=== PATIENT | female | born 1985 | race Caucasian/White ===

== ENCOUNTER 2018-09-10 09:50 | Outpatient (CLI) | payer OTHER, SELFPAY ==
[2018-09-10 10:39] VITALS: BMI 25.5
[2018-09-10 10:51] LABS: ROM Internal Control Test YES-OK TO RESULT pt. (Internal QC); ROM Patient Test Negative (Negative)
--- NOTE | 2018-09-15 18:18 | OB.TRI.NOTE ---
History of Present Illness Date of Service: 09/10/18 Was patient seen by the physician?: No Reason For Visit: R/O SROM Date of Service: 09/10/18 Final JIMBO: 09/11/18 Gestational age: 40 Weeks and 4 Days History of Present Illness: Presented to L&D for possible ROM and increased vaginal discharge. Mild contractions, infrequent. Allergies No Known Allergies Allergy (Verified 09/10/18 10:52) - Pertinent Past Medical History Medical History: Past Medical History (Last Updated 09/11/18 @ 08:22 by Patti Love DO) Collar bone fracture Laboratory Studies: Laboratory Tests 09/10/18 Range/Units 10:10 Vag Amniotic Fld Detect Negative (Negative) NST - FHR Rate Baby A Baseline: 135 Variability:: Moderate Accelerations:: 15 x 15 Decelerations:: None NST Reactive:: Yes Uterine Activity:: Irregular, mild. Lastin 40-120 seconds Impression/Plan A: 39w6d for false labor P: 1) D/C home 2) IOL in morning with Pitocin.
== END 2018-09-10 12:30 | disposition home or self-care (01) ==
LOC: WPOUT 10:16 → WP 10:17
PROVIDERS: Obstetrics & Gynecology; Family Provider Family Medicine; PCP Family Medicine; Referring Provider Advanced Practice Midwife; Visit Provider Advanced Practice Midwife
DX: O47.1 False labor at or after 37 completed weeks of gestation (principal); Z3A.39 39 weeks gestation of pregnancy
CPT/HCPCS: 59025; 59050; 84112; 99218; G0378

== ENCOUNTER 2018-09-11 06:55 | Inpatient (IN) | payer OTHER, SELFPAY ==
[2018-09-11] VITALS (8 sets, daily range): BP systolic 91–110; BP diastolic 53–70; PULSE 65–85; RESP 15–20; TEMP 36.6–36.7; O2SAT 97–98; BMI 25.5
[2018-09-11 07:51] LABS: Hematocrit 36.2 % (37-47); Hemoglobin 12.3 g/dl (12.0-15.0); Mean Corpuscular Hgb 31.8 pg (27.0-32.0); Mean Corpuscular Volume 93.5 fL (81-99); Mean Platelet Vol. 10.4 fl (6.2-12.0); Platelet Count 147 K/mm3 (150-450); RBC Distribution Width CV 12.6 % (11.6-14.6); RBC Distribution Width SD 42.1 fl (35.1-43.9); Red Blood Count 3.87 M/mm3 (4.2-5.4); White Blood Count 9.2 K/mm3 (4.4-11.0)
[2018-09-11 07:52] LABS: Scan Indicated on CBC? Y/N NO
[2018-09-11] MEDS: Oxytocin 30 units/NS 500 ml 30 UNITS/500 ML IV.SOLN IV (08:00)
[2018-09-11] MEDS: Lactated Ringers 1,000 ML 50 ML IV ×5 (08:03→19:52)
--- NOTE | 2018-09-11 08:19 | PCM.HP.OB ---
- Problem List (1) Multiparous Status: Acute (2) AMA (advanced maternal age) multigravida 35+ Status: Acute History Date of Admission: 09/11/18 Final JIMBO: 09/11/18 Final JIMBO Source: LMP Gestational age: 40 Weeks and 0 Days History of this : This is a 33 year-old, , at 40 weeks gestational age presenting for IOL for AMA. Cvx 5 cm dilated and a multip. No ctx, vb, lof. +FM. Medical History: Medical History (Last Updated 09/11/18 @ 08:22 by Patti Love DO) Collar bone fracture S42.009A Allergies No Known Allergies Allergy (Verified 09/10/18 10:52) Home Medications: Home Medications Vits [Prenatabs FA] 1 tablet PO DAILY 06/06/15 Smoking Status: Never smoker Number of Fetus(es): 1 Heart Tracing: Category 1 TOCO Analysis: No regular ctx's History Past Pregnancies: Past Pregnancies Delivery Date Name GA/Weeks Outcome Route Weight Infant Gender Labor Length Anesthesia Delivery Location Provider FOB term oligo 6lb 8w sab term 9lb term 8lb mab Labs: GBS neg, 1hr GTT 80, Rh pos, RI, syphilis NR, hep b neg, hiv nr, gc/ct neg Expected Delivery Method: Spontaneous Vaginal Review of Systems Constitutional: Denies: Fever Gynecological: Reports: - - No regular ctx, vb, lof. +FM Physical Exam General: Alert, Oriented x3 HEENT: Atraumatic Lungs: - - No increased resp effort Abdomen: Gravid Neurological: Neuro grossly intact [employer]: Normal external genitalia Estimated gestational size: Appropriate for gestational size Presentation: Cephalic Cervix Dilation (cm): 5 Station: -3 Effacement (%): 60 Assessment/Plan All Active Problems Multiparous (Acute) AMA (advanced maternal age) multigravida 35+ (Acute) This is a 33 year-old, , at 40 weeks gestational age who presents for IOL. Hx significant for AMA, multip, cervical dilation of 5cm. - Routine intrapartum care - GBS neg - Start pit - Epidural for pain control - Will AROM after epidural
[2018-09-11] MEDS: fentaNYL-bupivacaine (epidural) 100 ML BAG EPIDURAL ×2 (10:06→15:00)
--- NOTE | 2018-09-11 12:41 | PN_ITS ---
Progress Note At bedside to check on pt. S/p epidural and comfortable. Cvx 5/80/-1, more anterior. Leaking clear fluid no membranes felt. SROM for clear fluid around noon. Category 1 tracing. [place] with ctx's q 3-4 min. Continue pit. Continue current management. Will recheck in 2 hrs and if no cervical change place IUPC.
[2018-09-11] MEDS: Amnioinfusion- 0.9% NS 1,000 ML IV.SOLN. INTRA-UTER (17:00)
--- NOTE | 2018-09-11 17:44 | PCM.PN.BLA ---
Progress Note At bedside with patient over last 1 hour. Cvx 10/100/0 station, OP position. Patient pushed for about 30 min with minimal descent. Attempted to manually rotate the baby, but was still OP position. Started position changes, and had patient in left lateral and right lateral with leg draped over side of bed to hopefully assist with turning baby. Had patient push in left and right lateral. FHT 130/mod dank/no accels/+variables with pushing. FSE and IUPC placed. Amnioinfusion started. Cvx 10/100/0, OP position. Had been pushing for about 1 hour. Took a break from pushing, and placed patient and hands and knees.
--- NOTE | 2018-09-11 18:56 | PCM.PN.BLA ---
Progress Note Patient pushing for almost 2 hours. Continue with position changes. Maternal effort great with pushing. Cvx 10/100/+1 station. Still OP position. Patient has made some descent with pushing. FHT 135/mod dank/no accels/+variable decels with pushing. Will half pitocin and if variables continue, will stop pitocin. Discussed possible with patient.
[2018-09-11] MEDS: Sodium Citrate/Citric Acid 30 ML UDC PO (19:55)
--- NOTE | 2018-09-11 20:04 | PCM.PN.BLA ---
Progress Note At bedside to check on patient. Pit off. FHT 145/mod dank/no accels/+occasional variable decels. Cvx 10/100/+1, OP position. Patient tired from pushing over 2 hours. Given persistent OP position and intolerance to labor, recommended section. Discussed risks of a including bleeding with need for blood transfusion, infection and damage to surrounding organs.
[2018-09-11] MEDS: Cefazolin 2 GM in 0.9% Normal Saline 100 ML IV (20:31)
[2018-09-11] MEDS: Oxytocin 30 units/NS 500 ml 30 UNITS/500 ML IV.SOLN 167 UNITS IV (21:18)
[2018-09-11] MEDS: Lactated Ringers 1,000 ML 100 ML IV (22:10)
--- NOTE | 2018-09-11 22:18 | OP.PCM_ITS ---
- Problem List (1) Multiparous Status: Acute (2) AMA (advanced maternal age) multigravida 35+ Status: Acute Delivery Final JIMBO: 09/11/18 Gestational age: 40 Weeks and 0 Days Indications for : Failure of Descent, Nonreassuring Status, - - OP position Description of Procedure: Indications: The patient is a 33-year-old 003 who presented at 40 weeks gestation for induction of labor. significant for advanced maternal age. She is a multiparous patient and was 5 cm dilated at the start of the induction. She was started on Pitocin. She spontaneously ruptured. She progressed to complete. The fetus was noted to be in OP position. Several different position changes were attempted in order to rotate the fetus. Manual rotation was also attempted during pushing. The patient was pushing for over 2 hours, and with multiple different position changes as well as attempt at manual rotation, the fetus remained in OP position. Recurrent variable decelerations were noted, and the pitocin was stopped. After over 2 hours of pushing the station changed from 0 to +1, the patient became exhausted, more caput was developing, variable decelerations were becoming deeper, and no progress was made beyond +1 station. The decision was made to proceed with a section after discussion of risks, benefits, and alternatives with the patient. Procedure: The kerns was noted to be draining bright red bloody urine prior to the start of the procedure. The patient was taken to the operating room where epidural anesthesia was not found to be adequate. The patient was then sat up for a spinal anesthesia. The patient was then prepped and draped in the usual sterile fashion in dorsal supine position with a leftward tilt. Spinal anesthesia was found to be adequate. A Pfannenstiel skin incision was made with the scalpel and carried through to the underlying layer of fascia. The fascia was incised in the midline and extended laterally using Jose scissors. Reg clamps were used to elevate the superior aspect of the fascial incision, and the underlying rectus muscles were dissected off bluntly and using Jose scissors. A ttention was then turned to the inferior aspect of the fascial incision, which was grasped with Reg clamps; the underlying rectus muscles were dissected off bluntly and using Jose scissors. The rectus muscles were in the midline. The peritoneum was entered using Metzenbaum scissors. This incision was extended superiorly and inferiorly with good visualization of the bladder. The bladder blade was inserted. The lower uterine segment was incised in a transverse fashion using a scalpel and extended bluntly. Meconium-stained fluid was noted. The was noted to be in OP position. The infant was delivered without difficulty but with assistance from a hand below. The nose and mouth were bulb suctioned. The cord was clamped and cut. The was subsequently handed off to the waiting nursery nurse. The placenta was delivered with manual extraction. The uterus was exteriorized and cleared of all clot and debris. There was a small extension noted left laterally. The uterine incision was repaired using 0 Vicryl in a running locked fashion. Hemostasis was noted. Normal bilateral tubes and ovaries were noted. The uterus was then returned to the abdomen. The uterine incision was reexamined and again noted to be hemostatic. Adryan was placed over the bladder and the uterine incision. The peritoneum was reapproximated in the midline using 3-0 Vicryl. The fascia was closed with 0 Vicryl suture. Subcutaneous layer was irrigated and found to be hemostatic. The skin was closed in a subcuticular fashion with suture. Sponge, lap, instrument, and needle counts were correct x2. The patient was stable at the completion of the procedure and was taken to the recovery room in good condition. Amniotic Membrane Rupture Type: Spontaneous Amniotic Fluid Description: Moderate meconium, - - It was initially clear during labor, meconium at time of section Drain: Kerns to straight drain Cord Entanglement: None Esitmated Blood Loss (ml): 600 Infant Gender: Male Complications: None - Admit VTE Documentation VTE Mechan Device Prophylaxis: SCD's
--- NOTE | 2018-09-11 23:00 | NURSING ---
scratches on R side of abdomen from straps for labor belts
--- NOTE | 2018-09-11 23:10 | NURSING ---
persistant OP, intolerance , failure to descend
[2018-09-12] VITALS (16 sets, daily range): BP systolic 89–122; BP diastolic 51–75; PULSE 63–111; RESP 15–18; TEMP 36.6–37.4; O2SAT 95–100
[2018-09-12] MEDS: Ketorolac 30 MG/ML Syringe IV ×4 (02:37→21:14)
[2018-09-12] MEDS: Lactated Ringers 1,000 ML 100 ML IV (02:38)
[2018-09-12 06:29] LABS: Hematocrit 30.6 % (37-47); Hemoglobin 10.2 g/dl (12.0-15.0); Mean Corp Hgb Conc 33.3 g/gl (32-36); Mean Corpuscular Hgb 31.8 pg (27.0-32.0); Mean Corpuscular Volume 95.3 fL (81-99); Mean Platelet Vol. 10.2 fl (6.2-12.0); Platelet Count 122 K/mm3 (150-450); RBC Distribution Width CV 12.6 % (11.6-14.6); RBC Distribution Width SD 42.1 fl (35.1-43.9); Red Blood Count 3.21 M/mm3 (4.2-5.4); White Blood Count 8.5 K/mm3 (4.4-11.0)
[2018-09-12 06:31] LABS: Scan Indicated on CBC? Y/N NO
--- NOTE | 2018-09-12 07:21 | PCM.PN.OB ---
Patient Problems: Active and Suspected Problems (Last Updated 09/11/18 @ 08:22 by Patti Love DO) Multiparous (Acute) AMA (advanced maternal age) multigravida 35+ (Acute) Subjective: Patient doing well. Pain controlled. Kerns in place. Had small amounts to eat last night without nausea or vomiting. Is breast-feeding. Denies fevers, chest pain, shortness of breath, leg pain. Has not ambulated. - Physical Exam General: Alert, Oriented x3 HEENT: Atraumatic Lungs: - - No increased resp effort Abdomen: Soft, Non Tender, - - FF@U-1 Extremities: No Calf Tenderness Skin: No rashes Neurological: Neuro grossly intact Psych/Mental Status: Normal Affect, Appropriate Vital Signs Temp Pulse Resp BP Pulse Ox 97.9 F 70 17 89/51 L 95 09/12/18 04:00 09/12/18 05:57 09/12/18 05:57 09/12/18 04:00 09/12/18 05:57 Oxygen Delivery Method Room Air Weight: 168 lb Body Mass Index (BMI) 25.5 Intake and Output for Last 24 Hours 09/10/18 09/11/18 09/12/18 23:59 23:59 23:59 Intake Total 3112 / 3112 200 / 200 Output Total 750 / 750 750 / 750 Balance 2362 / 2362 -550 / -550 Laboratory Tests Past 24 Hrs 09/11/18 09/11/18 09/11/18 07:30 07:30 09:20 WBC 9.2 RBC 3.87 L Hgb 12.3 Hct 36.2 L MCV 93.5 MCH 31.8 MCHC 34.0 RDW 12.6 RDW Differential 42.1 Plt Count 147 L MPV 10.4 Blood Type Cancelled B POSITIVE A1 Antigen Typing Cancelled Rho(D) Type Cancelled Antibody Screen Cancelled NEGATIVE 09/12/18 06:15 WBC 8.5 RBC 3.21 L Hgb 10.2 L Hct 30.6 L MCV 95.3 MCH 31.8 MCHC 33.3 RDW 12.6 RDW Differential 42.1 Plt Count 122 L MPV 10.2 Blood Type A1 Antigen Typing Rho(D) Type Antibody Screen Medical Necessity - Tobacco Use Smoking Status: Never smoker Assessment/Plan All Active Problems (Last Updated 09/11/18 @ 08:22 by Patti Love DO) Multiparous (Acute) AMA (advanced maternal age) multigravida 35+ (Acute) POD#1 s/p PLTCS for failure to descent, OP position, intolerance to labor. - Doing well - Start iron for acute blood loss anemia - Plt's decreased today, will repeat CBC in AM to trend - - D/c kerns today and encourage ambulation - Dispo: Routine PO care
[2018-09-12] MEDS: 0.9% Saline Lock 10 ML Syringe IV ×2 (16:28→21:15)
[2018-09-12] MEDS: Ferrous Sulfate 325 MG Tablet PO (16:29)
[2018-09-12] MEDS: Docusate Sodium 100 MG Capsule PO (21:15)
[2018-09-13 02:20] VITALS: BP 114/69; PULSE 97; RESP 16; TEMP 37.1; O2SAT 94
[2018-09-13] MEDS: Ketorolac 30 MG/ML Syringe IV ×3 (04:50→15:44)
[2018-09-13] MEDS: 0.9% Saline Lock 10 ML Syringe IV ×3 (04:51→15:44)
[2018-09-13] MEDS: Acetaminophen 500 MG Tablet 1000 MG PO ×2 (07:38→19:04)
[2018-09-13] MEDS: Docusate Sodium 100 MG Capsule PO ×2 (07:39→22:08)
--- NOTE | 2018-09-13 07:45 | PCM.PN.OB ---
Patient Problems: Active and Suspected Problems (Last Updated 09/11/18 @ 08:22 by Patti Love DO) Multiparous (Acute) AMA (advanced maternal age) multigravida 35+ (Acute) Subjective: No complaints - Physical Exam General: Alert, Oriented x3 Abdomen: Soft, Non Tender, Non-Distended - ff mid & below umb; inc - bandage c/d/i Extremities: No edema, No Calf Tenderness Vital Signs Temp Pulse Resp BP Pulse Ox 98.8 F 97 16 114/69 94 09/13/18 02:20 09/13/18 02:20 09/13/18 02:20 09/13/18 02:20 09/13/18 02:20 Oxygen Delivery Method Room Air Weight: 168 lb Body Mass Index (BMI) 25.5 Intake and Output for Last 24 Hours 09/11/18 09/12/18 09/13/18 23:59 23:59 23:59 Intake Total 3112 / 3112 3507 / 3507 Output Total 750 / 750 4500 / 4500 400 / 400 Balance 2362 / 2362 -993 / -993 -400 / -400 Medical Necessity - Tobacco Use Smoking Status: Never smoker Assessment/Plan All Active Problems (Last Updated 09/11/18 @ 08:22 by Patti Love DO) Multiparous (Acute) AMA (advanced maternal age) multigravida 35+ (Acute) POD#2 Routine care
[2018-09-13 08:00] VITALS: BP 94/55; PULSE 72; RESP 16; TEMP 36.3
[2018-09-13] MEDS: Ferrous Sulfate 325 MG Tablet PO ×2 (10:53→15:52)
[2018-09-13 14:16] VITALS: BP 106/67; PULSE 67; RESP 16; TEMP 36.3
[2018-09-13 20:30] VITALS: BP 106/69; PULSE 77; RESP 16; TEMP 36.4; O2SAT 96
[2018-09-13] MEDS: Ibuprofen 600 MG Tablet PO (22:08)
[2018-09-14 01:15] VITALS: BP 105/62; PULSE 72; RESP 16; TEMP 36.3; O2SAT 100
[2018-09-14] MEDS: Acetaminophen 500 MG Tablet 1000 MG PO (06:26)
--- NOTE | 2018-09-14 07:13 | PCM.PN.OB ---
Patient Problems: Active and Suspected Problems (Last Updated 09/11/18 @ 08:22 by Patti Love DO) Multiparous (Acute) AMA (advanced maternal age) multigravida 35+ (Acute) Subjective: No complaints - Physical Exam General: Alert, Oriented x3 Abdomen: Soft, Non Tender, Non-Distended - ff mid & below umb; bandage - c/d/i Extremities: No Calf Tenderness Vital Signs Temp Pulse Resp BP Pulse Ox 97.4 F L 72 16 105/62 100 09/14/18 01:15 09/14/18 01:15 09/14/18 01:15 09/14/18 01:15 09/14/18 01:15 Oxygen Delivery Method Room Air Weight: 168 lb Body Mass Index (BMI) 25.5 Intake and Output for Last 24 Hours 09/12/18 09/13/18 09/14/18 23:59 23:59 23:59 Intake Total 3507 / 3507 Output Total 4500 / 4500 400 / 400 Balance -993 / -993 -400 / -400 Medical Necessity - Tobacco Use Smoking Status: Never smoker Assessment/Plan All Active Problems (Last Updated 09/11/18 @ 08:22 by Patti Love DO) Multiparous (Acute) AMA (advanced maternal age) multigravida 35+ (Acute) POD#3 D/c home per patient request
--- NOTE | 2018-09-14 07:17 | DCINST_ITS ---
Discharge Diet: No Restrictions Discharge Activity: May not drive while taking narcotic pain medications., May Shower May resume sexual activity in: 4-6 weeks Weight Bearing Status: Weight bearing as tolerated Call your doctor if your incision/area has: Continuous Slow Oozing, Sudden Increased Bleeding, Increased Pain/ Swelling, Increased Redness, Foul Smelling Discharge, Swelling at the incision site Additional Instructions: If you experience any of the following, contact your healthcare provider. * Bleeding that soaks a pad every hour for 2 hours * Fever 100.4 or higher * Unrelieved incision or abdominal pain * Swelling, redness, discharge or bleeding from your incision or episiotomy site * Your incision begins to separate * Problems urinating (including inability to urinate or burning while urinating). * Visual changes * Severe headache * Flu-like symptoms * Pain or redness in one of both of your breasts * Pain, warmth, tenderness or swelling in your legs, especially the calf area * Frequent nausea and vomiting * Symptoms of depression or anxiety If you experience any of the following, call 911 or go to the nearest Emergency Room. * Chest pain * Problems breathing * Seizure activity * Partial or complete paralysis of a body part, slurred speech, weakness or drooping of the face, or a sudden inability to walk or hold your balance Allergies/Adverse Reactions: Allergies No Known Allergies Allergy (Verified 09/10/18 10:52) Medications to take at Discharge Vits [Prenatabs FA] 1 tablet PO DAILY 06/06/15 Oxycodone HCl/Acetaminophen [Percocet 5/325] 1 tablet PO Q6H PRN PRN 7 Days #20 tablet 09/12/18 The following prescriptions were given: Oxycodone HCl/Acetaminophen [Percocet 5/325] 1 tablet PO Q6H PRN PRN 7 Days #20 tablet PRN Reason: Pain Follow-Up: Call to make an appointment with your doctor for an incision check in 1-2 weeks. You will also need a 6 week post- follow up appointment. Test results from this visit will be discussed in further detail at your follow- up appointment, if applicable. Primary Care Physician: Bo Leigh III, MD [Primary Care Provider] -
[2018-09-14 08:30] VITALS: BP 108/70; PULSE 81; RESP 14; TEMP 36.4
[2018-09-14] MEDS: Ibuprofen 600 MG Tablet PO (08:33)
[2018-09-14] MEDS: Docusate Sodium 100 MG Capsule PO (08:33)
--- NOTE | 2018-09-18 17:10 | PCM.DC.SUM ---
Discharge Date and Diagnosis Date of Admission: 09/11/18 Date of Discharge: 09/14/18 Hospital Course and Treatment Summary of Care Provided: The patient is a 33 year old Female had a primary . Please see the dictated operative note. Hospital course: (1) Heme - HDS, cbc reviewed (2) GI - tolerating regular diet (3) - no voiding dysfunction (4) D/c home on POD#3 - Physical Exam Vital Signs Temp Pulse Resp BP Pulse Ox 97.6 F L 81 14 108/70 100 09/14/18 08:30 09/14/18 08:30 09/14/18 08:30 09/14/18 08:30 09/14/18 01:15 Oxygen Delivery Method Room Air Weight: 168 lb Body Mass Index (BMI) 25.5 Discharge Diet: No Restrictions Discharge Activity: May not drive while taking narcotic pain medications., May Shower May resume sexual activity in: 4-6 weeks Weight Bearing Status: Weight bearing as tolerated Call your doctor if your incision/area has: Continuous Slow Oozing, Sudden Increased Bleeding, Increased Pain/ Swelling, Increased Redness, Foul Smelling Discharge, Swelling at the incision site Home Medications: Medications to take at Discharge Vits [Prenatabs FA] 1 tablet PO DAILY 06/06/15 Oxycodone HCl/Acetaminophen [Percocet 5/325] 1 tablet PO Q6H PRN PRN 7 Days #20 tablet 09/12/18 Following Prescrptions Were Given to Patient: Oxycodone HCl/Acetaminophen [Percocet 5/325] 1 tablet PO Q6H PRN PRN 7 Days #20 tablet PRN Reason: Pain Primary Care Physician: Bo Leigh III, MD [Primary Care Provider] - Medical Necessity - Tobacco Use Smoking Status: Never smoker Meaningful Use Info Meaningful Use Diagnoses (Choose all that apply): None applicable
== END 2018-09-14 11:30 | disposition home or self-care (01) | DRG 787 ==
PROVIDERS: Admitting Provider Obstetrics & Gynecology; Family Provider Family Medicine; PCP Family Medicine; Visit Provider Obstetrics & Gynecology
DX: O76 Abnormality in fetal heart rate and rhythm complicating labor and delivery (principal); D62 Acute posthemorrhagic anemia; O32.4XX0 Maternal care for high head at term, not applicable or unspecified; O90.81 Anemia of the puerperium; O42.02 Full-term premature rupture of membranes, onset of labor within 24 hours of rupture; O32.2XX0 Maternal care for transverse and oblique lie, not applicable or unspecified; O77.0 Labor and delivery complicated by meconium in amniotic fluid; O09.523 Supervision of elderly multigravida, third trimester; Z3A.40 40 weeks gestation of pregnancy; Z37.0 Single live birth
CPT/HCPCS: 59025; 59050; 85027; 86850; 86900; 99218; J7030; J7120; A4216; G0378